=== PATIENT | female | born 1955 | race Asian ===

== ENCOUNTER 2018-10-08 20:10 | Emergency (ER) | payer OTHER ==
[~2018-10-08] VITALS: Ht 162.6 cm; Wt 72.7 kg
[2018-10-08] MEDS ORDERED: LEVO25TA9 PO (20:40)
[2018-10-08] MEDS ORDERED: DILT60CA PO (20:40)
[2018-10-08 21:34] LABS: APPEARANCE,URINE CLOUDY (CLEAR); BILIRUBIN,URINE NEGATIVE (NEGATIVE); GLUCOSE, URINE (UA) NEGATIVE (NEGATIVE); KETONES,URINE NEGATIVE (NEGATIVE); LEUKOCYTE ESTERASE ,URINE LARGE (NEGATIVE); NITRATE,URINE NEGATIVE (NEGATIVE); OCCULT BLOOD,URINE LARGE (NEGATIVE); PROTEIN,URINE NEGATIVE (NEGATIVE); UROBILINOGEN,URINE 0.2 mg/dL (<=1.0)
[2018-10-08 22:00] LABS: BACTERIA,URINE Rare /HPF (None Seen); RBC,URINE 0-2 /HPF (0-2); SQUAMOUS EPITHELIAL CELL,UR Few /LPF (None Seen); WBC,URINE >100 /HPF (0-5)
[2018-10-08] MEDS ORDERED: SULFAMETHOX/TRIMETH DS 800-160 MG/TABLET PO ONE (22:15)
[2018-10-08] MEDS ORDERED: PHENAZOPYRIDINE HCL 100 MG TABLET PO ONE (22:15)
[2018-10-08 23:00] VITALS: BP 195/88
== END 2018-10-08 23:31 | disposition home or self-care (01) ==
LOC: EMS 20:13
DX: N39.0 Urinary tract infection, site not specified (principal); I10 Essential (primary) hypertension; E03.9 Hypothyroidism, unspecified
CPT/HCPCS: 87086

== ENCOUNTER → 2018-10-25 | Outpatient (CLI) | payer OTHER ==
[~2018-10-25] MED LIST: DILT60CA PO; LEVO25TA9 PO
== END | disposition home or self-care (01) ==
LOC: RADPV 11:22
PROVIDERS: ATTEND Family Medicine
DX: M25.511 Pain in right shoulder (principal)

== ENCOUNTER 2021-11-14 12:43 | Inpatient (IN) | payer MEDICARE, OTHER ==
[~2021-11-14] VITALS: Ht 162.6 cm; Wt 68.6 kg
[2021-11-14] MEDS ORDERED: APIX5TAB PO (12:55)
[2021-11-14] MEDS ORDERED: ATOR10TA84 PO (12:55)
[2021-11-14] MEDS ORDERED: DRON400T6 PO (12:55)
[2021-11-14] MEDS ORDERED: DILT240C94 PO (14:02)
[2021-11-14] MEDS ORDERED: ACETAMINOPHEN 500 MG TABLET PO ONE (14:15)
[2021-11-14 14:32] LABS: BASOPHILS % (AUTO) 0.4 % (0.0-2.0); EOSINOPHILS % (AUTO) 1.2 % (1.0-6.0); LYMPHOCYTES # (AUTO) 2.3 K/uL (1.0-4.8); LYMPHOCYTES % (AUTO) 33.3 % (22.0-44.0); MEAN CORPUSCULAR HEMOGLOBIN 29.3 pg (26.0-34.0); MEAN CORPUSCULAR HGB CONC 33.3 G/dL (31.0-37.0); MEAN CORPUSCULAR VOLUME 88 fL (80-100); MONOCYTES # (AUTO) 0.7 K/uL (0.1-1.0); MONOCYTES % (AUTO) 10.5 % (2.0-9.0); NEUTROPHILS # (AUTO) 3.7 K/uL (1.8-7.7); NEUTROPHILS % (AUTO) 54.6 % (40.0-70.0); PLATELET COUNT (AUTO) 209 K/uL (150-450); RED BLOOD CELL COUNT(AUTO) 4.42 MIL/uL (4.00-5.20); RED CELL DISTRIBUTION WIDTH 13.1 % (11.5-14.5)
[2021-11-14 14:44] LABS: PROTHROMBIN TIME 10.8 SEC (9.4-11.6)
[2021-11-14] MEDS ORDERED: IOHEXOL 350 MG/ML 100 ML VIAL ONE (14:46)
[2021-11-14] MEDS ORDERED: SODIUM CHLORIDE 0.9% 100 ML ONE (14:46)
[2021-11-14 14:53] LABS: BILIRUBIN,TOTAL 0.7 mg/dL (0.1-1.0); CALCIUM, TOTAL 9.9 mg/dL (8.8-10.5); CREATININE 1.02 mg/dL (0.60-1.30)
[2021-11-14 14:55] LABS: POTASSIUM 2.8 mmol/L (3.5-5.1)
[2021-11-14] MEDS ORDERED: POTASSIUM CHLORIDE 20 MEQ ER TABLET PO ONE (15:00)
[2021-11-14] MEDS: POTASSIUM CHL 10 MEQ/WATER 50 ML IV SCH ×2 (15:06→16:25)
[2021-11-14 15:27] LABS: MAGNESIUM 2.3 mg/dL (1.80-2.40); PHOSPHORUS 3.2 mg/dL (2.5-4.9)
[2021-11-14] MEDS ORDERED: PIPERACILLIN SODIUM/TAZOBACTAM 4.5 GM in DEXTROSE 5%-WATER 100 ML IV ONE (16:00)
[2021-11-14] MEDS ORDERED: SODIUM CHLORIDE 0.9% 1,000 ML IV SCH (16:15)
[2021-11-14] MEDS ORDERED: ACETAMINOPHEN 325 MG TABLET PO PRN (16:15)
[2021-11-14] MEDS ORDERED: PANTOPRAZOLE SODIUM 80 MG in SODIUM CHLORIDE 0.9% 100 ML IV SCH (16:15)
[2021-11-14] MEDS ORDERED: MORPHINE SULFATE 2 MG/ML SYRINGE IVP PRN (16:15)
[2021-11-14] MEDS ORDERED: PANTOPRAZOLE SODIUM 40 MG/VIAL IVP ONE (16:15)
[2021-11-14] MEDS ORDERED: POTASSIUM CHL 10 MEQ/WATER 50 ML IV PRN (16:15)
[2021-11-14] MEDS ORDERED: ONDANSETRON HCL 4 MG/2 ML VIAL IVP PRN (16:15)
[2021-11-14] MEDS ORDERED: POTASSIUM CHLORIDE 20 MEQ ER TABLET PO PRN (16:15)
[2021-11-14 17:21] LABS: COVID AG,FIA SOURCE NASOPHARYNGEAL
[2021-11-14 17:23] VITALS: BP 171/100
[2021-11-14] MEDS ORDERED: HydrALAZINE HCL 20 MG/ML VIAL IVP PRN (19:45)
[2021-11-14 20:14] VITALS: BP 154/64
[2021-11-14] MEDS: DOCUSATE SODIUM 100 MG CAPSULE PO SCH (20:17)
[2021-11-14] MEDS: PIPERACILLIN/TAZO 3.375 GM/D5W 50 ML IV SCH (23:00)
[2021-11-15] VITALS (7 sets, daily range): BP systolic 139–169; BP diastolic 68–81
[2021-11-15] MEDS ORDERED: PANTOPRAZOLE SODIUM 80 MG in SODIUM CHLORIDE 0.9% 100 ML IV SCH (02:30)
[2021-11-15] MEDS: PIPERACILLIN/TAZO 3.375 GM/D5W 50 ML IV SCH ×4 (05:00→23:02)
[2021-11-15 05:46] LABS: BASOPHILS % (AUTO) 0.8 % (0.0-2.0); EOSINOPHILS % (AUTO) 3.3 % (1.0-6.0); HEMATOCRIT 37.4 % (36-46); HEMOGLOBIN 12.5 g/dL (12.0-16.0); LYMPHOCYTES # (AUTO) 2.3 K/uL (1.0-4.8); LYMPHOCYTES % (AUTO) 47.4 % (22.0-44.0); MEAN CORPUSCULAR HEMOGLOBIN 29.4 pg (26.0-34.0); MEAN CORPUSCULAR HGB CONC 33.5 G/dL (31.0-37.0); MEAN CORPUSCULAR VOLUME 88 fL (80-100); MONOCYTES # (AUTO) 0.5 K/uL (0.1-1.0); MONOCYTES % (AUTO) 10.4 % (2.0-9.0); NEUTROPHILS # (AUTO) 1.8 K/uL (1.8-7.7); NEUTROPHILS % (AUTO) 38.1 % (40.0-70.0); PLATELET COUNT (AUTO) 198 K/uL (150-450); RED BLOOD CELL COUNT(AUTO) 4.25 MIL/uL (4.00-5.20); RED CELL DISTRIBUTION WIDTH 13.1 % (11.5-14.5)
[2021-11-15] MEDS: DOCUSATE SODIUM 100 MG CAPSULE PO SCH ×2 (08:09→20:33)
[2021-11-15] MEDS: PANTOPRAZOLE SODIUM 40 MG/VIAL IVP SCH (09:00)
[2021-11-15 11:58] LABS: CALCIUM, TOTAL 9.4 mg/dL (8.8-10.5); CREATININE 1.04 mg/dL (0.60-1.30); POTASSIUM 3.7 mmol/L (3.5-5.1)
[2021-11-15] MEDS: MetroNIDAZOLE 500 MG TABLET PO SCH ×2 (18:44→20:33)
[2021-11-15] MEDS: CIPROFLOXACIN HCL 500 MG TABLET PO SCH (20:33)
[2021-11-16 04:45] VITALS: BP 141/57
[2021-11-16] MEDS: PIPERACILLIN/TAZO 3.375 GM/D5W 50 ML IV SCH ×2 (05:10→10:56)
[2021-11-16 07:32] VITALS: BP 151/57
[2021-11-16] MEDS: MetroNIDAZOLE 500 MG TABLET PO SCH (08:15)
[2021-11-16] MEDS: PANTOPRAZOLE SODIUM 40 MG/VIAL IVP SCH (08:15)
[2021-11-16] MEDS: CIPROFLOXACIN HCL 500 MG TABLET PO SCH (08:15)
[2021-11-16] MEDS: DOCUSATE SODIUM 100 MG CAPSULE PO SCH (08:15)
[2021-11-16 11:42] VITALS: BP 147/77
[2021-11-16] MEDS ORDERED: AMLO-257 PO (12:53)
[2021-11-16] MEDS ORDERED: CIPR500T10 PO (12:53)
[2021-11-16] MEDS ORDERED: METR500 PO (12:53)
== END 2021-11-16 14:35 | disposition home or self-care (01) | DRG 392 ==
LOC: EMS 12:43 → 5S 16:13
PROVIDERS: ADMIT Internal Medicine; ATTEND Internal Medicine
DX: K52.9 Noninfective gastroenteritis and colitis, unspecified (principal); E03.9 Hypothyroidism, unspecified; I10 Essential (primary) hypertension; I48.0 Paroxysmal atrial fibrillation; Z20.822 Contact with and (suspected) exposure to COVID-19; E87.6 Hypokalemia; Z90.710 Acquired absence of both cervix and uterus; Z79.899 Other long term (current) drug therapy
CPT/HCPCS: 74177; 80048; 80053; 82271; 83690; 83735; 84100; 84132; 85025; 85610; 85730; 87040; 99285; C9113; J2543; J3480; J7030; J7050; J7060; Q9967

== ENCOUNTER → 2023-01-24 | Outpatient (CLI) | payer MEDICARE, OTHER ==
[~2023-01-24] MED LIST changes: +AMLO-257 PO; +APIX5TAB PO; +ATOR10TA PO; +CIPR500T10 PO; -DILT60CA PO; +DRON400T6 PO; +METR500 PO
== END | disposition home or self-care (01) ==
LOC: RADMN 12:05
PROVIDERS: ATTEND Family Medicine
DX: M47.817 Spondylosis without myelopathy or radiculopathy, lumbosacral region (principal); M25.752 Osteophyte, left hip; M25.751 Osteophyte, right hip; M16.0 Bilateral primary osteoarthritis of hip; M48.07 Spinal stenosis, lumbosacral region; M25.78 Osteophyte, vertebrae; M46.1 Sacroiliitis, not elsewhere classified; G95.89 Other specified diseases of spinal cord; M51.37 Other intervertebral disc degeneration, lumbosacral region; M25.551 Pain in right hip; M25.552 Pain in left hip
CPT/HCPCS: 72100; 73521